=== PATIENT | male | born 1955 | race Caucasian/White ===

== ENCOUNTER 2016-11-02 13:21 | Emergency (ER) | payer OTHER ==
[2016-11-02] MEDS ORDERED: INSULIN HUMAN REGULAR 100 U/ML SOL SUBCUT ONE (13:48)
[2016-11-02 13:57] LABS: HEMATOCRIT 44 % (39-53); MEAN CORPUSCULAR HGB CONC 35.6 gm/dl (32.0-36.0); MEAN CORPUSCULAR VOLUME 80 fL (80-100)
[2016-11-02] MEDS ORDERED: SODIUM CHLORIDE 0.9% FLUSH 10 ML SOL IV PRN (13:59)
[2016-11-02] MEDS ORDERED: INSULIN HUMAN REGULAR 100 U/ML SOL ONE (14:01)
[2016-11-02 14:04] LABS: CALCIUM 8.3 mg/dl (8.5-10.1)
[2016-11-02] MEDS: SODIUM CHLORIDE 0.9% 1000ML 1,000 ML IV SCH ×2 (14:10→16:00)
[2016-11-02 14:14] LABS: BASOPHILS % (MANUAL) 0 % (0-3); EOSINOPHILS % (MANUAL) 0 % (0-9); LYMPHOCYTES % (MANUAL) 35 % (10-50); NORMAL RBCS PRESENT; SMUDGE CELLS PRESENT
[2016-11-02] MEDS ORDERED: INSULIN HUMAN REGULAR 100 U/ML SOL SC ONE (15:45)
[2016-11-02] MEDS ORDERED: INSULIN HUMAN REGULAR 100 U/ML SOL IV ONE (16:01)
[2016-11-02 16:23] VITALS: TEMP 99.2
[2016-11-02 16:56] LABS: APPEARANCE,URINE Clear; BILIRUBIN,URINE NEGATIVE (NEGATIVE); COLOR,URINE Yellow; GLUCOSE, URINE (UA) 3+ (NEGATIVE); KETONES,URINE 2+ (NEGATIVE); LEUKOCYTE ESTERASE ,URINE NEGATIVE (NEGATIVE); NITRATE,URINE NEGATIVE (NEGATIVE); OCCULT BLOOD,URINE TRACE INTACT (NEG-TRACE); PH,URINE 5.5; UROBILINOGEN,URINE 0.2 (0.2-1.0 EU)
[2016-11-02 17:04] LABS: AMPHETAMINES NEGATIVE (NEGATIVE); METHADONE NEGATIVE (NEGATIVE); OPIATES(OP13) NEGATIVE (NEGATIVE); OXYCODONE(OXY) NEGATIVE (NEGATIVE); PROPOXYPHENE(PPX) NEGATIVE (NEGATIVE); RBC,URINE 0-2 (0-3AV/HPF); TRICYCLIC ANTIDEPRESSANTS NEGATIVE (NEGATIVE); WBC,URINE 0-2 (0-5AV/HPF)
[2016-11-02] MEDS ORDERED: LEVOFLOXACIN 500 MG TAB PO ONE (17:47)
[2016-11-02] MEDS ORDERED: LEVOFLOXACIN 500 MG TAB ONE (17:52)
[2016-11-02 19:43] VITALS: BP 152/88; PULSE 68; RESP 25; O2SAT 93
[2016-11-02] MEDS ORDERED: INSULIN GLARGINE, RECOMBINAN 100 U/ML SOL SC SCH (21:00)
== END 2016-11-02 18:20 | disposition home or self-care (01) ==
LOC: ED 13:21
DX: E11.65 Type 2 diabetes mellitus with hyperglycemia (principal); Z79.84 Long term (current) use of oral hypoglycemic drugs; D72.829 Elevated white blood cell count, unspecified; E87.1 Hypo-osmolality and hyponatremia
CPT/HCPCS: 99285 ×3; 71010; 80053; 81001; 82009; 82962 ×4; 85007; 85027; J1815 ×2; 70450; 80305; 96365; 96366; 96372; 99284

== ENCOUNTER 2016-11-04 18:53 | Emergency (ER) | payer OTHER ==
[2016-11-04] MEDS ORDERED: ATROPINE 0.1 MG/ML SOL ONE (19:04)
[2016-11-04] MEDS ORDERED: LIDOCAINE HCL 2% (100 MG) CARP ONE (19:04)
[2016-11-04] MEDS ORDERED: ROCURONIUM BROMIDE 10 MG/ML SOL IV ONE ×2 (19:05→20:47)
[2016-11-04] MEDS ORDERED: ETOMIDATE 2 MG/ML SOL IV ONE ×2 (19:05→20:47)
[2016-11-04] MEDS ORDERED: SUCCINYLCHOLINE CHLORIDE 20 MG/ML SOL IV ONE ×2 (19:05→20:47)
[2016-11-04] MEDS ORDERED: MIDAZOLAM 2 MG/2 ML SOL ONE (19:23)
[2016-11-04 19:38] LABS: HEMATOCRIT 44 % (39-53); MEAN CORPUSCULAR HGB CONC 34.2 gm/dl (32.0-36.0); MEAN CORPUSCULAR VOLUME 83 fL (80-100)
[2016-11-04 19:39] LABS: ABG PH 7.13 (7.35-7.45)
[2016-11-04 19:44] LABS: BASOPHILS % (MANUAL) 0 % (0-3); EOSINOPHILS % (MANUAL) 1 % (0-9); LYMPHOCYTES % (MANUAL) 81 % (10-50)
[2016-11-04 19:45] LABS: NORMAL RBCS PRESENT; PLATELET MORPHOLOGY COMMENT ADEQUATE; SMUDGE CELLS OCCASIONAL
[2016-11-04 19:46] LABS: POTASSIUM 3.1 mMol/L (3.5-5.1)
[2016-11-04 19:47] LABS: CALCIUM 7.8 mg/dl (8.5-10.1)
[2016-11-04 20:45] LABS: APPEARANCE,URINE Clear; BILIRUBIN,URINE NEGATIVE (NEGATIVE); COLOR,URINE Yellow; GLUCOSE, URINE (UA) 2+ (NEGATIVE); KETONES,URINE NEGATIVE (NEGATIVE); LEUKOCYTE ESTERASE ,URINE NEGATIVE (NEGATIVE); NITRATE,URINE NEGATIVE (NEGATIVE); OCCULT BLOOD,URINE 1+ (NEG-TRACE); UROBILINOGEN,URINE 0.2 (0.2-1.0 EU)
[2016-11-04] MEDS ORDERED: LIDOCAINE HCL 2% (100 MG) CARP IV ONE (20:47)
[2016-11-04] MEDS ORDERED: MIDAZOLAM 2 MG/2 ML SOL IV ONE (20:47)
[2016-11-04 20:57] LABS: RBC,URINE NEG (0-3AV/HPF); WBC,URINE 0-1 (0-5AV/HPF)
[2016-11-04 20:58] LABS: AMPHETAMINES NEGATIVE (NEGATIVE); METHADONE NEGATIVE (NEGATIVE); OPIATES(OP13) NEGATIVE (NEGATIVE); OXYCODONE(OXY) NEGATIVE (NEGATIVE); PROPOXYPHENE(PPX) NEGATIVE (NEGATIVE); TRICYCLIC ANTIDEPRESSANTS NEGATIVE (NEGATIVE)
[2016-11-04 21:14] VITALS: RESP 34
[2016-11-04 21:15] VITALS: O2SAT 100
[2016-11-04 21:16] VITALS: BP 197/118; PULSE 122
[2016-11-04 21:17] VITALS: TEMP 96
== END 2016-11-04 20:00 | disposition short-term general hospital (02) ==
LOC: ED 18:53
DX: R40.1 Stupor (principal); R56.9 Unspecified convulsions
CPT/HCPCS: 99291 ×3; 36600; 80053; 81001; 82803; 85007; 85027; J0330; J2001; J2250; 31500; 36415; 80305; 96374; 96375; J0461

== ENCOUNTER 2018-09-04 17:56 | Inpatient (IN) | payer MEDICARE, OTHER ==
[2018-09-04] MEDS: SODIUM CHLORIDE 0.9% 1000ML 1,000 ML IV SCH ×2 (18:45→19:45)
[2018-09-04 19:00] LABS: HEMATOCRIT 46 % (39-53); HEMOGLOBIN 14.6 gm/dl (13.5-17.7); MEAN CORPUSCULAR HEMOGLOBIN 27.1 pg (27.0-32.0); MEAN CORPUSCULAR VOLUME 84 fL (80-100)
[2018-09-04] MEDS ORDERED: INSULIN HUMAN REGULAR 100 U/ML SOL IV ONE (19:10)
[2018-09-04 19:14] LABS: ABG PH 7.4 (7.35-7.45)
[2018-09-04 19:19] LABS: CALCIUM 8.5 mg/dl (8.5-10.1)
[2018-09-04 19:27] LABS: ALBUMIN 3.4 gm/dl (3.4-5.0); ALKALINE PHOSPHATASE 139 IU/L (46-116); ALT 37 IU/L (14-63); AST 27 IU/L (15-37); BILIRUBIN,TOTAL 0.6 mg/dl (0.2-1.0); BLOOD UREA NITROGEN 13 mg/dl (7-18); CHLORIDE 96 mMol/L (98-107); CREATININE 1.11 mg/dl (0.80-1.30); GLUCOSE 396 mg/dl (74-106); POTASSIUM 4.3 mMol/L (3.5-5.1); SODIUM 134 mMol/L (136-145); TOTAL PROTEIN 6.5 gm/dl (6.4-8.2)
[2018-09-04] MEDS ORDERED: INSULIN HUMAN REGULAR 500 U in SODIUM CHLORIDE 0.9% 500 ML 500 ML IV SCH (19:30)
[2018-09-04 19:31] LABS: HEMOGLOBIN A1C 9.7 % (4.8-6.0)
[2018-09-04] MEDS ORDERED: INSULIN HUMAN REGULAR 100 U/ML SOL ONE (19:34)
[2018-09-04 19:46] LABS: BAND NEUTROPHILS % (MANUAL) 4 %; LYMPHOCYTES % (MANUAL) 77 % (10-50); MONOCYTES % (MANUAL) 2 % (0-12); NEUTROPHILS % (MANUAL) 17 % (37-80)
[2018-09-04 19:47] LABS: BASOPHILS % (MANUAL) 0 % (0-3); EOSINOPHILS % (MANUAL) 0 % (0-9); NORMAL RBCS PRESENT
[2018-09-04 19:59] LABS: APPEARANCE,URINE Clear; BILIRUBIN,URINE NEGATIVE (NEGATIVE); COLOR,URINE Yellow; GLUCOSE, URINE (UA) 3+ (NEGATIVE); KETONES,URINE NEGATIVE (NEGATIVE); LEUKOCYTE ESTERASE ,URINE NEGATIVE (NEGATIVE); NITRATE,URINE NEGATIVE (NEGATIVE); OCCULT BLOOD,URINE NEGATIVE (NEG-TRACE)
[2018-09-04 20:02] LABS: BACTERIA RARE (< 1+); CRYSTALS NEGATIVE (0-3 AVE/HPF); EPITHELIAL CELLS 0-2 (SQUAMOUS); RBC,URINE 0-2 (0-3AV/HPF); WBC,URINE 0-2 (0-5AV/HPF)
[2018-09-04] MEDS ORDERED: SODIUM CHLORIDE/KCL 20MEQ 1,000 ML IV ONE (20:38)
[2018-09-04] MEDS ORDERED: POTASSIUM CHLORIDE 2 MEQ/ML SOL IV ONE ×2 (20:40→22:17)
[2018-09-04 21:48] LABS: CALCIUM 8.2 mg/dl (8.5-10.1); CREATININE 0.88 mg/dl (0.80-1.30)
[2018-09-04 21:52] LABS: CARBON DIOXIDE 28.3 mEq/L (21-32)
[2018-09-04] MEDS ORDERED: NICOTINE 7 MG PATCH TD SCH (22:00)
[2018-09-04] MEDS ORDERED: DEXTROSE/SALINE 0.9% 1,000 ML with POTASSIUM CHLORIDE 2 MEQ/ML 20 MEQ IV SCH (22:15)
[2018-09-04] MEDS: NOVOLOG FLEXPEN SC SCH ×2 (22:40→23:33)
[2018-09-04] MEDS ORDERED: SODIUM CHLORIDE 0.45% 1000 ML 1,000 ML IV SCH (23:00)
[2018-09-04] MEDS ORDERED: DEXTROSE/SALINE 0.45/KCL 20MEQ 1,000 ML/1,000 ML SOL IV SCH (23:15)
[2018-09-05] MEDS: SODIUM CHLORIDE 0.9% 1000ML 1,000 ML IV SCH (00:09)
[2018-09-05] MEDS: NOVOLOG FLEXPEN SC SCH (01:28)
[2018-09-05] MEDS ORDERED: FAMOTIDINE 20 MG TAB PO SCH (07:00)
[2018-09-05 07:32] VITALS: BP 163/80; PULSE 93; RESP 24; TEMP 98.2; O2SAT 93
[2018-09-05 07:50] LABS: ALBUMIN 3.2 gm/dl (3.4-5.0); BILIRUBIN,TOTAL 1.1 mg/dl (0.2-1.0); CALCIUM 8.2 mg/dl (8.5-10.1); CARBON DIOXIDE 28.5 mEq/L (21-32); CREATININE 0.89 mg/dl (0.80-1.30); POTASSIUM 4.2 mMol/L (3.5-5.1); TOTAL PROTEIN 6.2 gm/dl (6.4-8.2)
[2018-09-05] MEDS ORDERED: GLIMEPIRIDE 2 MG TAB PO SCH (08:00)
[2018-09-05] MEDS ORDERED: NOVOLOG FLEXPEN SC SCH (08:00)
[2018-09-05 08:14] LABS: HEMOGLOBIN A1C 10.3 % (4.8-6.0)
[2018-09-05] MEDS ORDERED: ASPIRIN EC 81 MG PO SCH (09:00)
[2018-09-05] MEDS ORDERED: GABAPENTIN 300 MG CAP PO SCH (09:00)
[2018-09-05] MEDS ORDERED: RANITIDINE HCL 150 MG TAB PO SCH (09:00)
[2018-09-05] MEDS ORDERED: ALLOPURINOL 100 MG TAB PO SCH (09:00)
[2018-09-05] MEDS ORDERED: CARVEDILOL 12.5 MG TAB PO SCH (09:00)
[2018-09-05] MEDS ORDERED: INSULIN GLARGINE, RECOMBINAN 100 U/ML SOL SC SCH ×2 (09:11→21:00)
[2018-09-05] MEDS ORDERED: METFORMIN HYDROCHLORIDE 500 MG TAB PO SCH (12:00)
[2018-09-05] MEDS ORDERED: ATORVASTATIN 10 MG TAB PO SCH (21:00)
== END 2018-09-05 12:40 | disposition left against medical advice (07) | DRG 641 ==
LOC: ED 17:56 → ACUTE CARE 20:55 → UNDOADMIN 20:55 → ACUTE CARE 21:00
PROVIDERS: ADMIT Family Medicine; ATTEND Family Medicine
DX: R73.9 Hyperglycemia, unspecified (principal); Z79.4 Long term (current) use of insulin; E11.9 Type 2 diabetes mellitus without complications; Z53.21 Procedure and treatment not carried out due to patient leaving prior to being seen by health care provider
CPT/HCPCS: 36415; 36600; 71046; 80048; 80053; 81001; 82009; 82803; 82962; 83036; 83735; 84100; 85007; 85027; 93005; 93012; 96365; 96366; 99222; 99238; 99285; J1815; J1817; J3480; A9270-GY